=== PATIENT | male | born 1970 | race Caucasian/White ===

== ENCOUNTER 2017-08-13 12:17 | Emergency (ER) | payer MEDICAID ==
[~2017-08-13] VITALS: Ht 177.8 cm; Wt 90.5 kg
[~2017-08-13 12:17] MED LIST: ALPR0.25 PO; AMLO2.5T PO; FOLI-17 PO; LISI-170 PO; MULT-484 PO; PROP40TA PO; THIA100T6 PO
[2017-08-13 12:30] VITALS: BP 174/107
[2017-08-13] MEDS ORDERED: KETOROLAC 30 MG/1 ML ONE (13:20)
[2017-08-13] MEDS ORDERED: KETOROLAC 30 MG/1 ML IM ONE (13:30)
[2017-08-13 13:38] LABS: BASOPHILS # (AUTO) 0.04 x10^3/uL (0-0.1); BASOPHILS % (AUTO) 0 % (0-1); EOSINOPHILS # (AUTO) 0.08 x10^3/uL (0-0.4); EOSINOPHILS % (AUTO) 1 % (1-7); LYMPHOCYTES # (AUTO) 2.12 x10^3/uL (1-3.4); LYMPHOCYTES % (AUTO) 22 % (22-44); MD NO; MEAN CORPUSCULAR HEMOGLOBIN 31.8 pg (27.5-34.5); MEAN CORPUSCULAR VOLUME 93.6 fL (81-97); MEAN PLATELET VOLUME 8.1 fL (7.4-10.4); MONOCYTES # (AUTO) 0.85 x10^3/uL (0.2-0.8); MONOCYTES % (AUTO) 9 % (2-9); NEUTROPHILS % (AUTO) 68 % (42-75); PLATELET COUNT 207 x10^3/uL (130-400); RED BLOOD COUNT 5.26 x10^6/uL (4.38-5.82); RED CELL DISTRIBUTION WIDTH 12.9 % (9.4-14.8)
[2017-08-13 13:51] LABS: ALBUMIN 4.3 g/dL (3.4-5.0); ANION GAP 11 mmol/L (5-15); CALCIUM 9.1 mg/dL (8.5-10.1); CHLORIDE 103 mmol/L (98-107); CREATININE 0.83 mg/dL (0.7-1.3)
[2017-08-13 13:54] LABS: TROPONIN I < 0.015 ng/mL (0.000-0.045)
== END 2017-08-13 14:45 | disposition home or self-care (01) ==
LOC: ED 14:40
DX: R07.89 Other chest pain (principal); I10 Essential (primary) hypertension; Z72.9 Problem related to lifestyle, unspecified; E78.00 Pure hypercholesterolemia, unspecified; F41.9 Anxiety disorder, unspecified
CPT/HCPCS: 36415; 71046; 80048; 82040; 84484; 85025; 85379; 93005; 96372; 99285; J1885